=== PATIENT | female | born 2005 | race African-American/Black ===

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

== ENCOUNTER 2023-04-15 23:43 | Emergency (ER) | payer SELFPAY ==
[~2023-04-15] VITALS: Ht 165.1 cm; Wt 90.0 kg
[~2023-04-15 23:43] MED LIST: CEPHALEXIN500 MG PO
[2023-04-16] MEDS ORDERED: ULTRAM50 MG PO (00:18)
[2023-04-16] MEDS ORDERED: AMOXICILLIN500 MG PO (00:18)
[2023-04-16 00:44] VITALS: BP 145/87
== END 2023-04-16 00:45 | disposition home or self-care (01) | DRG 159 ==
LOC: ED 23:43
DX: K04.7 Periapical abscess without sinus (principal)